=== PATIENT | female | born 1990 | race Caucasian/White ===

== ENCOUNTER 2017-01-25 12:02 | Emergency (ER) | payer BC, OTHER ==
[~2017-01-25] VITALS: Ht 152.4 cm; Wt 66.9 kg
[2017-01-25 12:14] VITALS: BP 119/84; PULSE 103; TEMP 37; O2SAT 97; Ht 152.4 cm; Wt 66.9 kg
[2017-01-25] MEDS ORDERED: ELMCR TOP (13:06)
--- NOTE | 2017-01-25 13:08 | EMERGENCY ROOM VISIT NOTE ---
History First contact with patient: 12:21 Chief Complaint: RASH Stated Complaint: EXPOSED TO SCABIES, RASH-WORK RELATED INJURY History of Present Illness The patient is a 26 year old female who presents to the Emergency Room via private vehicle with complaints of "exposed to scabies, rashwork with injury". The patient states that at her occupation, she believes she may been exposed to scabies. She states that after being in a certain home while at work, she notes that she began itching, and was treated with permethrin. She treated herself 2. She states that she may been reexposed, and notes that now her dog , and her significant other also developed similar symptoms. She states that one person at her work, has the exact same rash, and bite cr that she has. She has not been able to see the small whites, but does note that the bumps over her body, with streaking. There is been no fever or chills. Review of Systems A complete 10-point Review of Systems was discussed with the patient, with pertinent positives and negatives listed in the History of Present Illness. All remaining Review of Systems questions can be considered negative unless otherwise specified. Past Medical/Surgical History No pertinent past medical history. Family History Cancer. Social History Smoking Status: Current Every Day Smoker Patient is employed, and lives locally. Current/Historical Medications Scheduled Permethrin 5% (Elimite 5%), 30 GM TOP DIRECTED Miscellaneous Medications None (Patient States No Home Meds) Physical Exam Vital Signs Date Time Temp Pulse Resp B/P (MAP) Pulse Ox O2 Delivery O2 Flow Rate FiO2 01/25/17 12:14 37.0 103 20 119/84 97 Room Air Physical Exam VITAL SIGNS - Vital signs and nursing notes were reviewed. Stable. GENERAL -26-year-old female appearing her stated age who is in no acute distress. Communicates well with provider and answers questions appropriately. SKIN - there are small punctate, erythematous slightly raised regions overlying her arm, and shoulder region. There are also some of the left leg. There is tracking/burrowing from these regions. HEAD - NC/AT. Medical Decision & Procedures Medical Decision Patient was seen and evaluated as above. She presents to us today with small erythematous punctate regions, which are consistent with either scabies or fleas. Because of my has not been able to be visualized, I will treat for scabies, secondary to the [place]. It certainly is concerning history. She' ll be permethrin cream, however she is not to start this until the . The th of this month will be 14 days from her last dosing. She is also encouraged to use conservative measures at home which were outlined in her discharge instructions. She appears stable for outpatient management. She was educated upon worrisome symptoms which to return, had questions prior to discharge, and was discharged home in condition. Regarding her tetanus, she states that she received all of her childhood immunizations. 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 In the evaluation and treatment of this patient following differential diagnoses were entertained: Scabies, flea bites, among others. Impression Primary Impression: Scabies Departure Information Dispostion Home / Self-Care Condition GOOD Prescriptions Permethrin 5% (Elimite 5%) 180 Appln/60 Gm Cr 30 GM TOP DIRECTED for 1 Day, #1 TUBE Thoroughly massage and leave on for 8 to 14 hours before removing; may repeat 14 days after first treatment. Prov: Beni Suarez PA-C 01/25/17 Referrals No Doctor, Assigned (PCP) Louis Cherry M.D. Patient Instructions My [facility] Additional Instructions You were seen in the emergency Department for a rash. At this time this is most like a scabies, or flea bites. Because of the concern for scabies, I will recommend permethrin cream. Because you have already done 2 doses, please do not repeat the new prescription that I sent here pharmacy until 14 days after your last dose. You may repeat this on February 06. I also recommend following up with the family doctor. Thoroughly massage cream (30 g for average adult) from head to soles of feet; leave on for 8 to 14 hours before removing (shower or bath); for infants and the elderly, also apply on the hairline, neck, scalp, worship, and forehead; may repeat if living mites are observed 14 days after first treatment; one application is generally curative. When you start treatment, wash all the clothes you and others in your home wore in the last 4 to 5 days in hot water. Then dry them in a dryer on high heat. You should also wash any bedclothes (sheets and blankets) or towels people in your home have touched. If your child is getting treated, wash his or her stuffed animals, too. Dry-cleaning will also get rid of the scabies mite. Any bedding, clothing, or towels that you cannot wash or dry-clean should be placed in a sealed plastic bag for at least 3 days. Scabies mites usually without contact with human skin after a few days. I have also listed number for dermatology. Please check with your workman's comp to see if this is an improved individual. This is so that continued care if needed may be had. Please follow-up with your work comp person. Please also wear high white socks, and look for small little jumping mites as this may indicate fleas. I recommended taking the dog to the vet. Please return to emergency department with any new/concerning symptoms. Questions or concerns please call [phone]. This will directly go to the emergency department.
== END 2017-01-25 13:35 | disposition home or self-care (01) ==
LOC: C.EDB 12:04 → C.EDD 13:35
DX: B86 Scabies (principal); F17.200 Nicotine dependence, unspecified, uncomplicated

== ENCOUNTER 2018-01-14 16:39 | Outpatient (CLI) | payer OTHER ==
[~2018-01-14] VITALS: Ht 152.4 cm; Wt 71.9 kg
[~2018-01-14 16:39] MED LIST: ELMCR TOP
[2018-01-14] MEDS ORDERED: PEDI1CHW82 (18:21)
[2018-01-14] MEDS ORDERED: NVLNI SC (18:21)
[2018-01-14] MEDS ORDERED: FERR1TAB23 (18:21)
[2018-01-14] MEDS ORDERED: ESOM20CA PO (18:21)
[2018-01-14 18:23] VITALS: Ht 152.4 cm; Wt 71.9 kg
== END 2018-01-14 17:45 | disposition home or self-care (01) ==
LOC: C.OPB 16:39 → C.OBG 16:39 → C.OPB 17:45
PROVIDERS: ATTEND Obstetrics & Gynecology
DX: O24.419 Gestational diabetes mellitus in pregnancy, unspecified control (principal); O99.89 Other specified diseases and conditions complicating pregnancy, childbirth and the puerperium; R03.0 Elevated blood-pressure reading, without diagnosis of hypertension; Z3A.00 Weeks of gestation of pregnancy not specified

== ENCOUNTER 2018-01-17 09:34 | Inpatient (IN) | payer OTHER ==
[~2018-01-17] VITALS: Ht 152.4 cm; Wt 71.7 kg
[~2018-01-17 09:34] MED LIST changes: -ELMCR TOP; +ESOM20CA PO; +FERR1TAB23; +NVLNI SC; +PEDI1CHW82
[2018-01-17 10:08] VITALS: Ht 152.4 cm; Wt 71.7 kg
[2018-01-17] MEDS ORDERED: SODIUM CHLORIDE 0.9% 1000ML 1,000 ML IV SCH (10:25)
[2018-01-17] MEDS ORDERED: LACTATED RINGER'S 1000ML 1,000 ML IV PRN (10:25)
[2018-01-17] MEDS ORDERED: DEXTROSE 5% 1000ML 1,000 ML IV SCH (10:25)
[2018-01-17] MEDS ORDERED: LACTATED RINGER'S 1000ML 500 ML IV PRN ×2 (10:28→14:33)
[2018-01-17] MEDS ORDERED: PHARMACY GLYCEMIC MGMT CONSULT PRN (10:30)
[2018-01-17] MEDS ORDERED: DEXTROSE 50% 50 ML SYR IV PRN (10:30)
[2018-01-17] MEDS ORDERED: ONDANSETRON INJ 2 MG/ML 2 ML VIAL IV PRN ×2 (10:30→14:45)
[2018-01-17] MEDS ORDERED: OXYTOCIN 30 UNITS/500ML NSS IV PRN ×2 (10:30→20:00)
[2018-01-17 10:48] LABS: HEMATOCRIT 36.6 % (37-47); HEMOGLOBIN 12.5 g/dL (12.0-16.0); MEAN CELL VOLUME 89.5 fL (80-100); MEAN CORPUSCULAR HEMOGLOBIN 30.6 pg (25-34); MEAN CORPUSCULAR HGB CONC 34.2 g/dl (32-36); MEAN PLATELET VOLUME 11.6 fL (7.4-10.4); PLATELET COUNT 197 K/uL (130-400); RED CELL DISTRIBUTION WIDTH CV 13.9 % (11.5-14.5); RED CELL DISTRIBUTION WIDTH SD 45.8 fL (36.4-46.3); WHITE BLOOD COUNT 13.34 K/uL (4.8-10.8)
[2018-01-17 11:25] LABS: ALBUMIN 2.7 gm/dl (3.4-5.0); CALCIUM 8.6 mg/dl (8.5-10.1); CREATININE 0.78 mg/dl (0.60-1.20); POTASSIUM 3.8 mmol/L (3.5-5.1); TOTAL PROTEIN 6.8 gm/dl (6.4-8.2)
[2018-01-17] MEDS ORDERED: INSULIN REGULAR 250 UNITS in SODIUM CHLORIDE 0.9% 250ML 250 ML IV SCH (13:00)
--- NOTE | 2018-01-17 13:33 | Pharmacy Progress Note ---
Glycemic: Assessment & Plan Date of Service Jan 17, 2018. Assessment & Plan ASSESSMENT: * Ms Sherman is a 27yo female with gestational diabetes, which she has been managing with NPH 26 units SQ qHS. * BSGs in the 80s on admission. PLAN: * Gestational DM protocol initiated by provider on admission. * This appears to be appropriate. * Pharmacy will follow in case patient requires additional intervention. * Please note that the plan above was derived based on current level of insulin resistance and hospital stress. These recommendations are appropriate for inpatient admission only. Plan of care upon discharge will need to be reassessed to avoid potential outpatient hypo/hyperglycemia.
[2018-01-17] MEDS: LACTATED RINGER'S 1000ML 1,000 ML IV SCH ×3 (13:39→18:35)
[2018-01-17] MEDS ORDERED: BUPIVACAINE 0.25% 30 ML VIAL ONE (13:52)
[2018-01-17] MEDS ORDERED: EpHEDrine SULFATE INJ 50 MG/ML AMP ONE (13:52)
[2018-01-17] MEDS ORDERED: FENTANYL CITRATE INJ 50 MCG/1 ML 2 ML VIAL ONE (13:53)
[2018-01-17] MEDS ORDERED: FENTANYL 2MCG/ML ROPIV 1.25MG/ML 100ML BAG ONE (13:53)
[2018-01-17] MEDS ORDERED: NALOXONE HCL INJ 1 MG in SODIUM CHLORIDE 0.9% 1000ML 1,000 ML IV PRN (14:33)
[2018-01-17] MEDS ORDERED: EpHEDrine SULFATE INJ 50 MG/ML AMP IV PRN (14:45)
[2018-01-17] MEDS ORDERED: NALOXONE HCL INJ 0.4 MG/1 ML VIAL/CARP IV PRN (14:45)
[2018-01-17] MEDS ORDERED: DiphenhydrAMINE HCL 50 MG/ML VIAL IV PRN (14:45)
[2018-01-17] MEDS ORDERED: NALBUPHINE HCL INJ 10 MG/ML 1ML AMP IV PRN (14:45)
[2018-01-17] MEDS ORDERED: FENTANYL 2MCG/ML ROPIV 1.25MG/ML 100ML BAG EPI PRN (14:45)
[2018-01-17] MEDS ORDERED: ACETAMINOPHEN 325 MG TAB PO STA (15:13)
[2018-01-17] MEDS ORDERED: LACTATED RINGER'S 1000ML 1,000 ML IV SCH (19:48)
[2018-01-17] MEDS: DOCUSATE SODIUM 100 MG CAP PO SCH (20:00)
[2018-01-17] MEDS ORDERED: MEASLES, MUMPS & RUBELLA VIRUS VIAL SQ. ONE (20:00)
[2018-01-17] MEDS ORDERED: ACETAMINOPHEN 325 MG TAB PO PRN (20:00)
[2018-01-17] MEDS ORDERED: HYDROCORTISONE ACETATE 25 MG SUPP PR PRN (20:00)
[2018-01-17] MEDS ORDERED: BENZOCAINE 20% AER SPR 82.5 GM CAN EXT PRN (20:00)
[2018-01-17] MEDS ORDERED: DIPHTHERIA/TETANUS/PERTUSSIS 0.5 ML SYR/VIAL IM. ONE (20:00)
[2018-01-17] MEDS ORDERED: LANOLIN OINT EXT PRN (20:00)
[2018-01-17] MEDS ORDERED: SUPERCREAM 0.870 % 15GM JAR EXT PRN (20:00)
--- NOTE | 2018-01-17 20:19 | DELIVERY SUMMARY ---
DATE OF OPERATION: 01/17/2018 TIME OF DELIVERY OF BABY: 1911 p.m. TIME OF DELIVERY OF PLACENTA: 19:20 p.m. DETAILS OF DELIVERY: Patient was found to be fully dilated and desired to push. She pushed for about one and half an hour and the head was over the perineum, which had tight hymenal ring and muscles. Mother was exhausted and the heart rate was having decelerations to 80s-90s. Then a right mediolateral episiotomy was opened. Head was delivered without difficulty. Shoulders were delivered with minimal traction. There was a nuchal cord x1, which was reduced. Baby was handed off to the mother, where mouth and nose were suctioned. Cord was clamped x2 and cut. It was 3-vessel cord. Cord blood was obtained. Vagina and perineum were checked for lacerations. There was only episiotomy, which was opened earlier. It was checked to be second degree with rectal exam. Excellent sphincter tone was noted. Gloves were changed. This episiotomy line was repaired with 2-0 Vicryl in a running lock fashion bringing the vagina mucosa together. Perineal body muscle and bulbocavernosus muscle together and skin in a subcuticular fashion. Then the placenta was found to be in the vagina and delivered spontaneously as intact and complete. Uterus was explored and was found to be empty. Lower segment was cleared off all clots and debris. EBL was 300 ml. Fundus was firm. Mom and baby tolerated the procedure well. Sponge, lap, and needle counts were correct x2. Baby was a viable female infant. Apgars 9/10, weight was 3229 gr. No complications happened and I was present during whole procedure. I attest to the content of the Intraoperative Record and any orders documented therein. Any exceptions are noted below. MTDD
[2018-01-17 21:30] VITALS: BP 128/80; PULSE 83; TEMP 37; O2SAT 97
--- NOTE | 2018-01-17 22:41 | Anesthesia Procedure Note ---
Anesthesia Epidural Removal Nt Date & Time Jan 17, 2018 at 22:41 Vital Signs Pain Intensity: 4.0 Vital Signs Past 12 Hours Date Time Temp Pulse Resp B/P (MAP) Pulse Ox O2 Delivery O2 Flow Rate FiO2 01/17/18 21:30 Room Air 01/17/18 21:30 37.0 83 16 128/80 (96) 97 Room Air Notes Mental Status: alert / awake / arousable, participated in evaluation Nausea / Vomiting: adequately controlled Pain: adequately controlled Airway Patency, RR, SpO2: stable & adequate BP & HR: stable & adequate Hydration State: stable & adequate Neuraxial Anesthesia: was administered, sensory block is resolving Anesthetic Complications: no major complications apparent, pt satisfied with anesthetic care Epidural: removed without complications, with tip intact
[2018-01-17] MEDS: IBUPROFEN 600 MG TAB PO PRN (23:37)
[2018-01-18] VITALS (7 sets, daily range): BP systolic 115–132; BP diastolic 71–80; PULSE 76–100; TEMP 36.6–37.1; O2SAT 96–98
[2018-01-18] MEDS: IBUPROFEN 600 MG TAB PO PRN ×5 (03:41→23:41)
[2018-01-18 07:22] LABS: HEMATOCRIT 28.1 % (37-47); HEMOGLOBIN 9.5 g/dL (12.0-16.0)
[2018-01-18] MEDS: PRENATAL VITAMIN TAB PO SCH (08:36)
[2018-01-18] MEDS: FERROUS SULFATE 325 MG TAB PO SCH (08:37)
[2018-01-18] MEDS: DOCUSATE SODIUM 100 MG CAP PO SCH ×2 (08:37→19:30)
[2018-01-18] MEDS: OXYCODONE/ACETAMINOPHEN 5-325 TAB PO PRN ×4 (08:39→23:41)
--- NOTE | 2018-01-18 12:35 | Progress Note ---
Subjective Jan 18, 2018. Subjective Passing Gas: Yes Diet Tolerance: Regular Diet Lochia: Small Feeding Type: Breast Feeding Review of Systems Constitutional: No fever, No chills, No sweats, No weight loss, No weakness, No fatigue, No problem reported Respiratory: No cough, No sputum, No wheezing, No shortness of breath, No dyspnea on exertion, No dyspnea at rest, No hemoptysis, No problem reported Cardiac: No chest pain, No orthopnea, No PND, No edema, No claudication, No palpitations, No problem reported Breast: No see HPI, No breast lump, No change in shape, No nipple discharge, No breast pain, No problem reported Abdomen: No pain, No nausea, No vomiting, No diarrhea, No constipation, No GI bleeding, No problem reported Female : No see HPI, No dysuria, No urinary frequency, No hematuria, No incontinence, No abnormal vaginal bleeding, No vaginal discharge, No problem reported Objective Vital Signs Date Time Temp Pulse Resp B/P (MAP) Pulse Ox O2 Delivery O2 Flow Rate FiO2 01/18/18 11:50 36.6 89 16 129/78 (95) 97 Room Air 01/18/18 07:40 Room Air 01/18/18 07:30 36.7 91 16 119/71 (87) 98 Room Air 01/18/18 04:20 36.8 79 16 115/75 (88) 96 Room Air 01/18/18 00:15 97 Room Air 01/18/18 00:15 37.1 86 18 132/73 (92) 97 Room Air 01/17/18 21:30 Room Air 01/17/18 21:30 37.0 83 16 128/80 (96) 97 Room Air Physical Exam General Appearance: WELL-APPEARING Fundus: Firm Laboratory Results Last 24 Hours Test 01/17/18 12:35 01/17/18 13:36 01/17/18 14:34 01/17/18 15:37 Bedside Glucose 82 mg/dl 78 mg/dl 94 mg/dl 97 mg/dl Test 01/17/18 16:37 01/17/18 17:36 01/17/18 18:32 01/18/18 06:33 Bedside Glucose 93 mg/dl 93 mg/dl 91 mg/dl Hemoglobin 9.5 g/dL Hematocrit 28.1 % Assessment and Plan Problem List Medical Problems: (1) Scabies Status: Acute Day#: 1
[2018-01-18] MEDS ORDERED: BISACODYL 5 MG TABEC PO SCH (20:00)
[2018-01-19] MEDS: IBUPROFEN 600 MG TAB PO PRN ×2 (03:34→08:49)
[2018-01-19] MEDS: OXYCODONE/ACETAMINOPHEN 5-325 TAB PO PRN (03:34)
[2018-01-19 06:48] LABS: HEMATOCRIT 26.4 % (37-47); HEMOGLOBIN 9.1 g/dL (12.0-16.0); MEAN CELL VOLUME 91.3 fL (80-100); MEAN CORPUSCULAR HEMOGLOBIN 31.5 pg (25-34); MEAN CORPUSCULAR HGB CONC 34.5 g/dl (32-36); MEAN PLATELET VOLUME 10.6 fL (7.4-10.4); PLATELET COUNT 185 K/uL (130-400); RED CELL DISTRIBUTION WIDTH CV 14.5 % (11.5-14.5); RED CELL DISTRIBUTION WIDTH SD 48.2 fL (36.4-46.3); WHITE BLOOD COUNT 11.52 K/uL (4.8-10.8)
[2018-01-19] MEDS ORDERED: BISACODYL 10 MG SUPP PR PRN (07:00)
[2018-01-19 08:00] VITALS: BP 123/78; PULSE 89; TEMP 36.7; O2SAT 98
[2018-01-19] MEDS: DOCUSATE SODIUM 100 MG CAP PO SCH (08:48)
[2018-01-19] MEDS: PRENATAL VITAMIN TAB PO SCH (08:48)
[2018-01-19] MEDS: FERROUS SULFATE 325 MG TAB PO SCH (08:48)
--- NOTE | 2018-01-19 09:06 | OB/GYN Progress Note ---
[facility] Progress Note Date of Service Jan 19, 2018. Subjective conversation w/ patient, physical exam Ambulation: ambulating normally Voiding: no incontinence Passing Gas: Yes Diet Tolerance: Regular Diet Lochia: Small Feeding Type: Breast Feeding Objective Vital Signs Date Time Temp Pulse Resp B/P (MAP) Pulse Ox O2 Delivery O2 Flow Rate FiO2 01/19/18 08:00 36.7 89 18 123/78 (93) 98 Room Air 01/18/18 23:30 36.7 76 16 120/79 (93) 96 Room Air 01/18/18 23:30 96 Room Air 01/18/18 19:32 36.6 100 18 122/80 (94) 98 Room Air 01/18/18 15:14 36.6 76 18 116/76 (89) 97 Room Air 01/18/18 15:14 97 Room Air 01/18/18 11:50 36.6 89 16 129/78 (95) 97 Room Air Physical Exam General Appearance: WELL-APPEARING, NO APPARENT DISTRESS Abdomen: non tender, soft Fundus: Firm Extremities: non-tender, normal inspection, no pedal edema, no calf tenderness Laboratory Results Last 24 Hours Test 01/19/18 06:39 White Blood Count 11.52 K/uL Red Blood Count 2.89 M/uL Hemoglobin 9.1 g/dL Hematocrit 26.4 % Mean Corpuscular Volume 91.3 fL Mean Corpuscular Hemoglobin 31.5 pg Mean Corpuscular Hemoglobin Concent 34.5 g/dl RDW Standard Deviation 48.2 fL RDW Coefficient of Variation 14.5 % Platelet Count 185 K/uL Mean Platelet Volume 10.6 fL Assessment and Plan Post- Day Number: 2 Continue Routine Care: discharged
[2018-01-19] MEDS ORDERED: MISC-1040 (09:08)
[2018-01-19] MEDS ORDERED: MTR600X PO (09:08)
--- NOTE | 2018-01-19 09:10 | Discharge Instructions ---
Discharge Instructions Date of Service Jan 19, 2018. Admission Reason for Admission: Leakage,Amniotic Fluid Discharge Discharge Diagnosis / Problem: term delivered Discharge Goals Goal(s): Routine recovery after delivery Activity Recommendations Activity Limitations: as noted below Lifting Limitations: no more than 10 pounds Exercise/Sports Limitations: gradually increase as tolerated May Resume Sexual Activity: after follow-up appointment Shower/Bathe: no limitations Driving or Machine Use: resume 3 days after discharge . Instructions / Follow-Up Instructions / Follow-Up ACTIVITY RECOMMENDATIONS: * Gradual return to full activity over the next 2-3 weeks. * No lifting - nothing heavier than baby over the next 2-3 weeks. * Do not engage in vigorous exercise, sexual activity or sports until cleared by your physician. * Do not drive or operate any motorized equipment until cleared by your physician. * You may shower/bathe daily. BREAST CARE: If you are not breast feeding: * Wear a supportive bra 24 hours a day for one to two weeks. * Avoid stimulating your breasts and nipples as much as possible during the first few weeks after delivery. * When taking a shower, have the warm water hit your back, not breasts. * When your breasts feel full, apply ice packs. Usually three to four times a day helps ease the discomfort. * Take a mild pain medication (Tylenol/Motrin) when you are uncomfortable. If breast feeding: * Use breast milk to lubricate nipples. Lansinoh cream may be used for sore nipples. You do not need to remove cream prior to breast feeding. If using a different brand of cream, check the label for directions regarding removal of cream prior to nursing. * Wear a supportive bra. * If having problems with breasts or breast feeding, call a customer consultant or your health care provider. EPISIOTOMY CARE: After delivery, if you have an episiotomy (stitches), the following steps will ease discomfort and aid healing. * For the first 24 hours after delivery, place ice packs next to your episiotomy to help reduce swelling. * After the first 24 hour-period, sitz baths, either portable or in the tub, are suggested. A shower with a shower arm sprayed over the episiotomy may be comforting. * Maria D care should be done after each voiding and bowel movement. Squirt warm water from a plastic bottle over the perineum (region of the body between the anus and urinary opening) and pat dry. * Use Dermoplast to ease discomfort. Shake container. [place] directly over the episiotomy. * Place a Tucks on a clean sanitary pad next to your episiotomy. OVER THE COUNTER MEDICATION: * For discomfort or pain, you may use Acetaminophen (Tylenol), Ibuprofen (Advil ), or Naproxen (Aleve) following the package directions. * For constipation you may use Colace following the package directions. SPECIAL CARE INSTRUCTIONS: When you are discharged from the hospital, it is important for you to follow the instructions listed below: * During the first week at home, you should be able to care for yourself and your baby. In addition, the usual light household activities are encouraged. * Limit your activities to the way you feel. Do not try to clean the house or move furniture. Be sensible. * If you actively engage in sports and have done so up until the time of your delivery, you may resume these activities as soon as you feel able. This may take up to one month or even longer. Use good judgment. * Continue to take your vitamins for at least six weeks after the of your baby. * Your diet need not be limited unless you were on a special diet before your delivery. Breast-feeding mothers need around 2500 calories per day and at least 64-80 ounces of fluid per day (8 to 10 glasses). * You should eat foods from the four major food groups. Crash diets or fad diets are to be avoided. Eating lean meats, fresh fruits and vegetables, low-fat dairy products, high fiber foods and a regular exercise program, will help you get back to your pre- weight without putting your health at risk. * Constipation is sometimes a problem after delivery. Take a mild laxative as needed. If breast feeding, Milk of Magnesia is acceptable to use. You may use a suppository or Fleets enema if no episiotomy. * A daily shower or tub bath is suggested. Be sure to thoroughly and gently dry the perineum. * A bloody vaginal discharge will usually continue until around four weeks post . A small amount of bleeding may continue for as long as six weeks. Vaginal discharge changes from the bright red bleeding after delivery to pink then brownish and finally yellowish-pink before becoming white and disappearing. * Bleeding may increase with activity. Your first period may come in 4-8 weeks. If you are breast feeding, your period may be delayed even longer. * [place] (sex) can begin whenever both you and your partner feel comfortable and do not have any form of genital infection. It is recommended that you wait until after your return appointment and discuss with your physician. If you have questions, please talk to your health care practitioner. A condom should be used to prevent infection and . * Foreplay, gentle intercourse and lubrication is very important the first several times to prevent pain. A water-based lubricant such as K-Y jelly or Astroglide may be used. * Tampons may be used six weeks after delivery. * Douching should be avoided for 6 weeks after delivery. * If you have RH negative blood and your baby is RH positive, you will receive RHOGAM by injection prior to discharge. The nurse will give you a card to keep with you that has the date and place that you received RHOGAM after delivery. * During your care, you had a Rubella screen done to check for the presence of rubella antibodies in your blood. If your test was negative, you will receive a Rubella vaccine prior to discharge. This vaccine may cause a fever, soreness at the injection site and flu-like symptoms. If these symptoms persist, notify your health care practitioner. is not advised for three months after a Rubella vaccine. There is a higher chance of having a baby with defects if conceived within three months of getting the vaccine. * If you were discharged 24 hours from delivery or before 48 hours: Visiting nurses will come to your home 48 hours after discharge to assess you and your baby. The visiting nurse will meet with you while you are in the hospital to arrange a time and get directions to your home. * Verbalizes understanding of car seat law as reviewed with patient nursing. * Car Seat hand-out given and reviewed with patient by nursing. * Shaken baby information reviewed with patient by nursing. Call you doctor if: * Heavy bleeding (saturating several pads an hour) or passing clots the size of your fist. * A fever >101 degrees F (38.3 degrees C) on two occasions four hours apart and/or chills. * Unusual pain in the pelvic or vaginal areas. * "Baby Blues" lasting longer than two weeks. If you have any questions or concerns, call your health care practitioner at . FOLLOW-UP VISIT: * Please call the office at to schedule a 6 week examination. It is important you keep this appointment. * It is important for you to make arrangements for either yearly or twice yearly check-ups thereafter. Current Hospital Diet Patient's current hospital diet: Regular OB Diet Discharge Diet Recommended Diet: Regular OB Diet Pending Studies Studies pending at discharge: no Medical Emergencies . Who to Call and When: Medical Emergencies: If at any time you feel your situation is an emergency, please call 911 immediately. . Non-Emergent Contact Non-Emergency issues call your: Primary Care Provider . . "Provider Documentation" section prepared by Jerson Harris. .
[2018-01-19 12:10] VITALS: BP_DIAS 78; PULSE 89; TEMP 36.7
== END 2018-01-19 12:10 | disposition home or self-care (01) | DRG 775 ==
LOC: C.OPB 09:34 → C.LD 09:34 → C.OPB 10:27 → C.LD 10:48 → C.OBG 21:34
PROVIDERS: ADMIT Obstetrics & Gynecology; ATTEND Obstetrics & Gynecology
PROC: 0W8NXZZ Division of Female Perineum, External Approach (ICD-10-PCS; principal; 2018-01-17)
PROC: 10E0XZZ Delivery of Products of Conception, External Approach (ICD-10-PCS; principal; 2018-01-17)
DX: O24.424 Gestational diabetes mellitus in childbirth, insulin controlled (principal); O75.81 Maternal exhaustion complicating labor and delivery; O76 Abnormality in fetal heart rate and rhythm complicating labor and delivery; O69.81X0 Labor and delivery complicated by cord around neck, without compression, not applicable or unspecified; O99.62 Diseases of the digestive system complicating childbirth; K21.9 Gastro-esophageal reflux disease without esophagitis; O99.02 Anemia complicating childbirth; D64.9 Anemia, unspecified; Z3A.39 39 weeks gestation of pregnancy; Z37.0 Single live birth; Z79.899 Other long term (current) drug therapy; Z87.891 Personal history of nicotine dependence

== ENCOUNTER 2021-05-29 20:25 | Inpatient (IN) ==
[2021-05-29] MEDS ORDERED: OXYTOCIN 30 UNITS/500 ML BAG IV PRN (23:46)
[2021-05-30] MEDS: LACTATED RINGER'S 1,000 ML IV PRN ×3 (00:01→04:38)
[2021-05-30 00:02] LABS: Hematocrit (blood only) 39.7 % (37-47); Hemoglobin 13.3 g/dL (12.0-16.0); Mean Corpuscular Hgb Conc 33.5 g/dL (32-36); Mean Corpuscular Volume 86.7 fL (80-100); Platelet Count 257 K/uL (130-400); RDW Coefficient of Variation 14.7 % (11.5-14.5); RDW Standard Deviation 46.2 fL (36.4-46.3); Red Blood Count 4.58 M/uL (4.2-5.4)
[2021-05-30] MEDS ORDERED: SODIUM CHLORIDE 0.9% INJ 10 ML VIAL ONE (00:07)
[2021-05-30] MEDS ORDERED: fentaNYL citrate 100 MCG/2 ML VIAL ONE (00:07)
[2021-05-30] MEDS ORDERED: BUPIVACAINE 0.25% 30 ML VIAL ONE (00:07)
[2021-05-30] MEDS ORDERED: ePHEDrine sulfate 50 MG/ML AMP ONE (00:07)
[2021-05-30] MEDS ORDERED: fentaNYL 2MCG/ML ROPIVACAINE 1.25MG/ML 100 ML BAG EPI ONE (00:08)
--- NOTE | 2021-05-30 00:20 | History & Physical Report ---
Date of Service May 30, 2021 Assessment & Plan (1) Diabetes mellitus affecting : Plan: Admit in labor Epidural planned epidural planned Admission and Anticipated Discharge Date Admission Date: n History of Present Illness Chief Complaint: onset of labor Primary Care Provider: MICHAEL PCP 30 F P1001 at term with onset of labor. with GDM controlled with insulin and blood sugars good. GBS is negative. Covid is negative. Allergies Allergy/AdvReac Type Severity Reaction Status Date / Time No Known Allergies Allergy Unverified 01/17/18 10:06 Home Medications Medication Instructions Recorded Confirmed Type ferrous sulfate 325 mg (65 mg 325 mg PO DAILY 05/29/21 05/29/21 History iron) tablet (iron) insulin glargine 100 unit/mL (3 32 unit SUBCUT HS 05/29/21 05/29/21 History mL) subcutaneous pen (Lantus Solostar U-100 Insulin) vit no.95-ferrous 1 tab PO DAILY 05/29/21 05/29/21 History fumarate 28 mg-folic acid 800 mcg tablet () Patient History Medical History (Updated 05/30/21 @ 00:39 by Francisco Cespedes MD) Diabetes mellitus affecting OB History x1 [employer] History neg Review of Systems as per Subjective / HPI Physical Exam Constitutional: WD/WN, vitals as above comfortable Respiratory: normal respiratory effort, lungs clear to auscultation Cardiovascular: RRR, no murmur, no edema Skin: no rashes, warm and dry Neurologic: patellar DTR's 2+ bilat, sensation intact Genitourinary: OB Exam Abdomen: + fundal height and + vertex OB Exam Monitor Tracing: + external FHT monitor used, + external uterine monitor used, + category I and + normal FHT variability Results & Data ([facility]) Vital Signs (Past 12 Hours) Vital Signs Temp Pulse Resp BP Pulse Ox 05/30/21 00:14 79 93 05/30/21 00:09 95 H 93 05/30/21 00:04 86 93 05/29/21 23:59 89 92 05/29/21 23:58 36.7 C 75 18 128/65 05/29/21 20:34 85 138/81 Laboratory Results Active Orders - 24 Hr 05/29/21 23:22 Outpatient bed [ADMIT] ORDER Activity [RC] NEEDED Monitoring [RC] protocol Ice Chips by Mouth [RC] .ONGOING Notify Provider w/ Parameters [RC] NEEDED Sterile Vaginal Exam [RC] PERUNIT Vital Signs Assessment [RC] PERUNIT Code Status Routine 05/29/21 23:23 AmniSure ROM Test (POC Only!) [POC] Urgent 05/29/21 23:46 Admit as Inpatient [ADMIT] ORDER Monitoring [RC] protocol IV insertion - peripheral [RC] ONCE LD Urine Dipstick [RC] PERUNIT Measure intake and output [RC] QSE O2 @ 10 L/min FHR deceleration [RC] as needed Straight Cath [RC] NEEDED Vital Signs Assessment [RC] PROTOCOL Consult Anesthesiology Stat NPO Lactated Ringer's [Lr] 1,000 ml IV 125 mls/hr Oxytocin [Pitocin] 30 units in 500 ml IV 20 units/hr 05/29/21 23:48 Provide COVID-19 Patient Instructions [RC] ONCE Diagnostic Findings 05/29/21 05/29/21 05/30/21 23:45 23:54 00:16 WBC 15.10 H RBC 4.58 Hgb 13.3 Hct 39.7 MCV 86.7 MCH 29.0 MCHC 33.5 RDW Std Deviation 46.2 RDW Coeff of Richa 14.7 H Plt Count 257 MPV 12.0 H POC Glucose 84 SARS-CoV-2, RNA, NAAT NEGATIVE Monitoring External Monitor Cat 1
[2021-05-30] MEDS ORDERED: diphenhydrAMINE 50 MG/ML VIAL IV PRN (00:33)
[2021-05-30] MEDS ORDERED: ONDANSETRON INJ 2 MG/ML 2 ML VIAL IV PRN (00:33)
[2021-05-30] MEDS ORDERED: fentaNYL 2MCG/ML ROPIVACAINE 1.25MG/ML 100 ML BAG EPI PRN (00:33)
[2021-05-30] MEDS ORDERED: NALBUPHINE HCL INJ 10 MG/ML AMP IV PRN (00:33)
[2021-05-30] MEDS ORDERED: ePHEDrine sulfate 50 MG/ML AMP IV PRN (00:33)
[2021-05-30] MEDS ORDERED: NALOXONE HCL 0.4 MG/1 ML VIAL/CARP IV PRN (00:33)
[2021-05-30] MEDS ORDERED: NALOXONE HCL 1 MG in SODIUM CHLORIDE 0.9% 1000ML 1,000 ML IV PRN (00:33)
--- NOTE | 2021-05-30 00:38 | Anesthesiology Consultation ---
Date of Service May 30, 2021 Assessment & Plan Chart Review Chart Review: Patient NOT seen in Pre Admission Testing and Acceptable Risk for Labor Epidural Consults Requested none ASA ASA3 Proposed Anesthesia Anesthesia Type: Labor Epidural and CSE Risk / Benefits Reviewed With: PT / POA / Parent / Guardian, Accepts Plan and Informed Consent Obtained History Height/Weight Weight: 74.843 kg Allergies Allergy/AdvReac Type Severity Reaction Status Date / Time No Known Allergies Allergy Unverified 01/17/18 10:06 Medications Home Medications Medication Instructions Recorded Confirmed Last Taken ferrous sulfate 325 mg (65 mg 325 mg PO DAILY 05/29/21 05/29/21 05/28/21 iron) tablet (iron) insulin glargine 100 unit/mL (3 32 unit SUBCUT HS 05/29/21 05/29/21 05/28/21 mL) subcutaneous pen (Lantus Solostar U-100 Insulin) vit no.95-ferrous 1 tab PO DAILY 05/29/21 05/29/21 05/29/21 fumarate 28 mg-folic acid 800 mcg tablet () Active Medications Generic Name Dose Route Start Last Admin Trade Name Freq PRN Reason Stop Dose Admin Lactated Ringer's 1,000 mls @ 125 mls/hr 05/29/21 23:46 05/30/21 00:01 Lr IV 05/31/21 23:45 999 mls/hr .Q8H PRN Administration L&D Protocol Protocol NPO Date Last Intake of Fluids: 05/30/21 Time Last Intake of Fluids: 00:10 Date Last Intake of Solids: 05/29/21 Time Last Intake of Solids: 18:30 Past Medical History Medical History (Updated 05/30/21 @ 00:39 by Francisco Cespedes MD) Diabetes mellitus affecting Exercise / Class Metabolic Activity II 4-5 Yardwork/Stairs/Walk up hill Past Anesthesia History No Hx of Anesthesia Complications and No Family Hx of Anesthesia Complications History of PONV No Hx of PONV and No Hx of Motion Sickness Review of Systems no chest pain or sob Physical Exam Vital Signs Last Vital Signs Temp 36.7 C 05/29/21 23:58 Pulse 84 05/30/21 00:33 Resp 18 05/29/21 23:58 BP 128/65 05/29/21 23:58 Pulse Ox 92 05/30/21 00:33 ENMT Mouth: no TMJ abnormality Thyromental Distance: > or= 3.5 Finger Breadths Mallampati Class: II Neck normal visual inspection Respiratory normal respiratory effort Auscultation: lungs clear to auscultation bilaterally Cardiovascular Rate/Rhythm: regular rate and regular rhythm Musculoskeletal Spine: normal cervical ROM Neurologic moves all extremities Psychiatric Orientation: alert and oriented x 3 Testing Laboratory Results 05/29/21 23:54 05/30/21 00:16 POC Glucose 84
[2021-05-30] MEDS ORDERED: OXYTOCIN 30 UNITS/500 ML BAG IV PRN ×2 (05:14→09:27)
--- NOTE | 2021-05-30 07:28 | Obstetrical Progress Note ---
Date of Service May 30, 2021 Assessment & Plan Admission and Anticipated Discharge Date Admission Date: May 29, 2021 Subjective Patient is seen and examined She is known to me from last Reviewed her records from office and confirmed with her has been complicated by GDMA2, insulin controlled DM Denies other medical problems, smoking/ alcohol/ D use/ STD, no h/o HSV Admitted for labor by Dr Harris, received epidural and comfortable now EFW on 05/15 was 53% ile VE; 5/ 70%/ -3, posterior, ballotable FHR categ I [place]: cyxs q 2-3 min Continue to monitor closely and Oxytocin Results & Data ([facility]) Vital Signs (Past 12 Hours) Vital Signs Temp Pulse Resp BP Pulse Ox 05/30/21 07:23 102 H 96 05/30/21 07:18 102 H 96 05/30/21 07:13 99 H 96 05/30/21 07:12 97 H 120/82 05/30/21 07:08 105 H 96 05/30/21 07:03 100 H 96 05/30/21 06:58 83 104/59 L 94 05/30/21 06:53 83 94 05/30/21 06:48 82 94 05/30/21 06:43 81 103/59 L 95 05/30/21 06:38 103 H 96 05/30/21 06:33 104 H 95 05/30/21 06:28 96 H 112/64 95 05/30/21 06:23 96 H 95 05/30/21 06:18 99 H 95 05/30/21 06:14 84 109/63 05/30/21 06:13 88 95 05/30/21 06:08 92 H 96 05/30/21 06:03 111 H 96 05/30/21 05:58 95 H 123/75 95 05/30/21 05:53 104 H 95 05/30/21 05:48 88 95 05/30/21 05:43 105 H 96 05/30/21 05:42 94 H 117/71 05/30/21 05:38 108 H 96 05/30/21 05:33 113 H 96 05/30/21 05:28 100 H 96 05/30/21 05:27 107 H 119/72 05/30/21 05:23 96 H 96 05/30/21 05:18 98 H 96 05/30/21 05:13 102 H 118/71 97 05/30/21 05:08 94 H 97 05/30/21 05:03 96 H 97 05/30/21 04:58 92 H 113/66 96 05/30/21 04:53 107 H 97 05/30/21 04:48 125 H 98 05/30/21 04:44 96 H 117/74 05/30/21 04:43 102 H 97 05/30/21 04:38 111 H 98 05/30/21 04:35 36.9 C 05/30/21 04:33 97 H 99 05/30/21 04:28 107 H 98 05/30/21 04:23 87 95 05/30/21 04:18 81 95 05/30/21 04:13 88 95 05/30/21 04:12 74 87/49 L 05/30/21 04:08 116 H 96 05/30/21 04:03 83 96 05/30/21 03:58 87 96 05/30/21 03:57 80 101/59 L 05/30/21 03:53 91 H 95 05/30/21 03:48 87 95 05/30/21 03:43 85 94/55 L 96 05/30/21 03:38 84 95 05/30/21 03:33 84 96 05/30/21 03:29 89 96/53 L 05/30/21 03:28 92 H 96 05/30/21 03:23 95 H 96 05/30/21 03:18 104 H 96 05/30/21 03:13 100 H 97 05/30/21 03:12 100 H 103/57 L 05/30/21 03:08 88 97 05/30/21 03:03 117 H 97 05/30/21 02:58 126 H 97 05/30/21 02:57 95 H 111/61 05/30/21 02:53 102 H 95 05/30/21 02:48 98 H 96 05/30/21 02:43 83 95 05/30/21 02:42 105 H 106/61 05/30/21 02:38 90 96 05/30/21 02:33 83 95 05/30/21 02:28 94 H 105/58 L 95 05/30/21 02:23 100 H 95 05/30/21 02:18 99 H 95 05/30/21 02:14 89 105/58 L 05/30/21 02:13 90 96 05/30/21 02:08 104 H 95 05/30/21 02:03 91 H 96 05/30/21 01:58 108 H 96 05/30/21 01:57 93 H 105/56 L 05/30/21 01:53 111 H 96 05/30/21 01:48 111 H 97 05/30/21 01:44 77 115/57 L 05/30/21 01:43 82 96 05/30/21 01:38 103 H 97 05/30/21 01:33 121 H 96 05/30/21 01:28 131 H 96 05/30/21 01:26 123 H 124/58 L 05/30/21 01:23 81 95 05/30/21 01:21 97 H 114/59 L 05/30/21 01:18 103 H 96 05/30/21 01:16 111 H 124/71 05/30/21 01:13 101 H 96 05/30/21 01:11 92 H 124/67 05/30/21 01:08 112 H 97 05/30/21 01:06 102 H 116/64 05/30/21 01:03 103 H 98 05/30/21 01:02 83 117/57 L 05/30/21 01:00 71 90/53 L 05/30/21 00:59 71 66/30 L 05/30/21 00:58 83 99 05/30/21 00:57 107 H 111/63 05/30/21 00:55 96 H 127/75 05/30/21 00:53 99 H 92 05/30/21 00:52 98 H 122/87 05/30/21 00:48 100 H 89 L 05/30/21 00:43 107 H 91 05/30/21 00:39 106 H 88 L 05/30/21 00:38 98 H 92 05/30/21 00:33 84 92 05/30/21 00:28 87 92 05/30/21 00:23 89 93 05/30/21 00:14 79 93 05/30/21 00:09 95 H 93 05/30/21 00:04 86 93 05/29/21 23:59 89 92 05/29/21 23:58 36.7 C 75 18 128/65 05/29/21 20:34 85 138/81
[2021-05-30] MEDS ORDERED: LIDOCAINE 1% LOCAL 20 ML VIAL ONE (09:03)
[2021-05-30] MEDS ORDERED: SUPERCREAM 0.870% 15 GM JAR EXT PRN (09:27)
[2021-05-30] MEDS ORDERED: HYDROCORTISONE ACETATE 25 MG SUPP PR PRN (09:27)
[2021-05-30] MEDS ORDERED: DIPHTHERIA/TETANUS/PERTUSSIS 0.5 ML SYR/VIAL IM ONE (09:27)
[2021-05-30] MEDS ORDERED: BENZOCAINE 20% AER SPR 82.5 GM CAN EXT PRN (09:27)
[2021-05-30] MEDS ORDERED: ACETAMINOPHEN 325 MG TAB PO PRN (09:27)
[2021-05-30] MEDS ORDERED: bisacodyL 10 MG SUPP PR PRN (09:27)
--- NOTE | 2021-05-30 09:38 | Delivery Summary ---
Vaginal Delivery Summary Date of Service May 30, 2021 Vaginal Delivery Summary Patient was found to be fully dilated and had urge to push. She pushed through 3-4 contractions and delivered the head without difficulty. There was a nuchal cord around the neck which was tight and then noted to have another cord wrapped around left armpit, delivered the shoulders with minimal traction and then these the cord around the infant. The cord was clamped x2 and cut and baby was handed off to the waiting nursing team. Baby boy started moving and crying at 1 minute and Apgars were 8/9. Cord blood was obtained and then vagina and perineum were checked for lacerations. There was a left periurethral first-degree laceration and there was another first-degree in the perineal area. The bladder was emptied with a straight cath and 200 mL of urine was obtained. And the left periurethral laceration was repaired with 3-0 Vicryl on SH needle in a continuous fashion. And then perineal laceration was repaired with 2-0 Vicryl in a running fashion. Excellent hemostasis was achieved. The placenta was found to be in the vagina and delivered spontaneously as intact and complete. Lower segment was cleared of all clots and debris's and fundus was firm. IV oxytocin was started. The mom and baby tolerated procedure well. Sponge needle and instrument count was correct x2. No complications happened. And I was present during whole procedure.
[2021-05-30] MEDS: IBUPROFEN 600 MG TAB PO PRN ×2 (10:56→15:46)
--- NOTE | 2021-05-30 11:11 | Anesthesia Procedure Note ---
Date of Service May 30, 2021 Anesthesia Post Epidural Note Vital Signs Vital Signs: Temp Pulse Resp BP Pulse Ox 36.9 C 94 H 20 110/57 L 99 05/30/21 07:12 05/30/21 10:57 05/30/21 10:57 05/30/21 10:57 05/30/21 09:03 Notes Mental Status: alert / awake / arousable and participated in evaluation Patient Amnestic to Procedure: Yes Nausea / Vomiting: adequately controlled Pain: adequately controlled Airway Patency, RR, SpO2: stable & adequate BP & HR: stable & adequate Hydration State: stable & adequate Anesthetic Complications: no major complications apparent and Pt Satisfied with anesthetic care
[2021-05-30] MEDS ORDERED: CALCIUM CARBONATE 500 MG CHEWABLE TAB PO PRN (20:13)
[2021-05-30] MEDS: DOCUSATE SODIUM 100 MG CAP PO SCH (20:46)
[2021-05-30] MEDS ORDERED: FAMOTIDINE 20 MG TAB PO SCH (21:00)
[2021-05-30] MEDS: oxyCODONE/ACETAMINOPHEN 5mg/325mg TAB PO PRN (22:28)
[2021-05-31] MEDS: IBUPROFEN 600 MG TAB PO PRN ×4 (00:25→12:37)
[2021-05-31] MEDS: oxyCODONE/ACETAMINOPHEN 5mg/325mg TAB PO PRN (04:26)
[2021-05-31 06:57] LABS: Hematocrit (blood only) 34.6 % (37-47); Hemoglobin 11.2 g/dL (12.0-16.0); Mean Corpuscular Hemoglobin 28.9 pg (25-34); Mean Corpuscular Hgb Conc 32.4 g/dL (32-36); Mean Corpuscular Volume 89.2 fL (80-100); Mean Platelet Volume 11.5 fL (7.4-10.4); Platelet Count 224 K/uL (130-400); RDW Coefficient of Variation 15.3 % (11.5-14.5); RDW Standard Deviation 49.3 fL (36.4-46.3); Red Blood Count 3.88 M/uL (4.2-5.4); White Blood Count 11.84 K/uL (4.8-10.8)
[2021-05-31] MEDS ORDERED: PRENATAL VITAMIN 1 TAB PO SCH (08:00)
[2021-05-31] MEDS ORDERED: FERROUS SULFATE 325 MG TAB PO SCH (08:00)
--- NOTE | 2021-05-31 08:05 | Obstetrical Progress Note ---
Date of Service May 31, 2021 Assessment & Plan (1) Normal course: Continue routine pP care D/c home later today when baby is discharged Subjective Ambulation: ambulating normally Voiding: no voiding problems Passing Gas:: Yes Diet Tolerance:: regular diet Lochia:: Small Feeding Type:: breast feeding Current Pain Level(1-10): 6 Patient doing well, pain controlled with PO meds. Wants to go home today Physical Exam Constitutional WD/WN, vitals as above Respiratory normal respiratory effort, lungs clear to auscultation Cardiovascular RRR, no murmur, no edema Gastrointestinal (Abdomen) normal bowel sounds, soft, nontender, no hepatosplenomegaly fundus below umbilicus Results & Data ([facility]) Vital Signs (Past 12 Hours) Vital Signs Temp Pulse Resp BP 05/31/21 03:00 36.5 C 76 18 113/73 05/31/21 00:30 36.4 C L 63 18 108/73
[2021-05-31] MEDS: DOCUSATE SODIUM 100 MG CAP PO SCH (09:00)
[2021-05-31] MEDS ORDERED: bisacodyL 5 MG TABEC PO SCH (20:00)
[2021-06-02 18:41] LABS: Chlamydia Trach RNA NOT DETECTED (NOT DETECTED); GC (Neis gonorrhoeae) RNA NOT DETECTED (NOT DETECTED)
== END 2021-05-31 14:00 | disposition home or self-care (01) | DRG 807 ==
LOC: OPB 20:25 → 4S1 20:28 → 4S2 05-30 13:56
DX: O71.82 Other specified trauma to perineum and vulva; Z79.899 Other long term (current) drug therapy; O24.424 Gestational diabetes mellitus in childbirth, insulin controlled; Z37.0 Single live birth; Z3A.00 Weeks of gestation of pregnancy not specified; O69.1XX0 Labor and delivery complicated by cord around neck, with compression, not applicable or unspecified; Z20.822 Contact with and (suspected) exposure to COVID-19

== ENCOUNTER 2025-04-05 13:22 | Inpatient (IN) ==
--- NOTE | 2025-04-05 13:39 | Emergency Department Note ---
Impression & Plan Precipitous delivery, delivered (current hospitalization) ED Provider Note Name: DAYANARA WINKLER Age: 34 Sex: Female Arrives Via: Walk-In Informant: Patient ED Provider: Ghanshyam Caro MD Chief Complaint: delivery Impression: As per impression above Medical Decision Makin-year-old female arrives for evaluation following precipitous delivery while and route to hospital. Third child. Examination with placenta still undelivered. No significant vaginal bleeding appreciated other than what would be expected. She has some bogginess of the uterus but still requires delivery of the placenta. Breathing comfortably no distress. Able to hold baby for warmth while IV was established. Defer any laboratory or further testing to OB team who is at bedside relatively shortly. Patient was brought to L&D for further management. Triage/Nursing Notes reviewed by Me Vital Signs: reviewed and remarkable for no significant abnormalities Consults:Dr Harris OB consulted emergently for precipitous delivery prior to arrival. He arrived and we will take over management of patient upstairs. Plan: Disposition: Transfer to L&D. Condition: Good History of Present Illness: 34-year-old female arrives for evaluation following precipitous delivery of third child while and route to hospital this morning. Delivered roughly 5 to 10 minutes prior to arrival. Arrives with in arms, placenta undelivered and umbilical cord still attached. Patient is denying any significant pain or heavy bleeding. She denies any nausea or vomiting. She notes she has been in labor for the last several hours though had not had significant contractions until within the last half hour to 45 minutes. Notes precipitous delivery just prior to getting to the hospital. No significant issues with it and was at her side during this period. No medications prior to arrival. Patient states that she has had some mild issues with low blood sugars throughout but otherwise has been following closely with OB. No hypertension. She states she has had all of her testing done. Past Medical History: Hypoglycemia Home Medications: None Allergies: None Vitals:Blood Pressure: 106/67, Pulse 90, RR 22 Physical Exam: GENERAL: Patient is well appearing and in mild distress and a bit overwhelmed consistent with situation RESPIRATORY: No dyspnea. Clear to auscultation and equal bilaterally. CARDIOVASCULAR: Regular rate and rhythm.No murmur appreciated. GASTROINTESTINAL: Abdomen exam is soft nontender. There are some bogginess to the uterus without any tenderness palpation. : Placenta still on delivered. Mild venous oozing noted no heavy bleeding appreciated. EXTREMITIES: Normal motion all extremities, no cyanosis, no edema. NEUROLOGIC: Alert and oriented. No focal neurologic deficits appreciated SKIN: No rash, no jaundice, no diaphoresis. PSYCH: Appropriate GCS: 15 Ghanshyam Caro MD Past Med/Surg History Problem List (Updated 04/05/25 @ 16:20 by Ghanshyam Caro MD) Precipitous delivery, delivered (current hospitalization) (Acute) Normal course Leakage, amniotic fluid Medical History Diabetes mellitus affecting Social History Smoking Status: Former smoker Tobacco Type: Cigarettes Hx Alcohol Use: No Hx Substance Use: No Preferred Language: Turkish Teacher Lip Reading Required: No Beliefs That Will Affect Care: None marital status: Current Living Situation: Spouse and Family Assistive Devices: None Allergies Allergies Allergy/AdvReac Type Severity Reaction Status Date / Time No Known Allergies Allergy Verified 10/25/24 22:20 Home Meds Previous Rx's Medication Instructions Recorded promethazine 25 mg tablet 25 mg PO TID PRN sedation #10 tabs 10/27/24 Results & Data (ED) Vital Signs Vital Signs - 24 hr 04/05/25 13:22 Sepsis Recent Fever Within 48 Hours No Sepsis New/Unexplained Change in Mental Status No Sepsis Action Taken by Nursing No Action Required Laboratory Data 04/05/25 14:27 Administered Medications Benzocaine (Benzocaine 20% [place] 85 Appln/85 Gm Can) 1 appln EXT PRN PRN PRN Reason: Perineal Discomfort Stop: 05/05/25 14:10 Last Admin: 04/05/25 15:46 Dose: 85 appln Documented By: RADHA Oxytocin (Pitocin 30 Units/Nss) 30 units in 500 mls @ 333.333 mls/hr IV .Q1H30M PRN; Protocol PRN Reason: Bleeding Control Stop: 04/08/25 14:08 Last Titration: 04/05/25 15:00 Dose: Infused Documented By: Admin: 04/05/25 14:05 Dose: 59.94 units/hr, 999 mls/hr Documented By: AEEdis Co-signed By: ZAHRAA Ibuprofen (Ibuprofen 600 Mg Tab) 600 mg PO Q4H PRN PRN Reason: Pain/BOWLES/Cramping/Fever Stop: 05/05/25 14:10 Last Admin: 04/05/25 15:47 Dose: 600 mg Documented By: RADHA Discharge Plan Visit Data Chief Complaint: OB/Uterine Contractions Stated Complaint: BABY BORN ED Provider: Ghanshyam Caro Discharge Problem: Precipitous delivery, delivered (current hospitalization) Patient Disposition: Admitted As Inpatient Condition: Good Discharge Instructions Interventions: ED Discharge Assessment Last Done: 04/05/25 13:42
[2025-04-05] MEDS: LIDOCAINE 1% LOCAL 20 ML VIAL INFIL PRN (14:00)
[2025-04-05] MEDS: OXYTOCIN 30 UNITS/NSS 30 UNITS/500 ML BAG IV PRN (14:05)
[2025-04-05] MEDS ORDERED: LACTATED RINGER'S 1,000 ML IV PRN (14:09)
[2025-04-05] MEDS ORDERED: OXYTOCIN 30 UNITS/NSS 30 UNITS/500 ML BAG IV PRN (14:11)
[2025-04-05] MEDS ORDERED: HYDROCORTISONE ACETATE 25 MG SUPP PR PRN (14:11)
[2025-04-05] MEDS ORDERED: DIPHTHER/TETAN/PERTUS Vaccine (Tdap, Adol/Adult) 0.5mL IM ONE (14:11)
[2025-04-05] MEDS ORDERED: ACETAMINOPHEN 325 MG TAB PO PRN (14:11)
--- NOTE | 2025-04-05 14:18 | History & Physical Report ---
Date of Service April 05, 2025 Assessment & Plan (1) Precipitous delivery, delivered (current hospitalization): Plan: Delivery of placenta done Admission and Anticipated Discharge Date Admission Date: April 05, 2025 History of Present Illness Chief Complaint: delivery in car on the way to the hospital Primary Care Provider: Adarsh Callaway MD 34 F P2002 at 38.5 weeks who had a preciptous delivery on the way to the [facility] and delivered in the car. 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 Required: No Beliefs That Will Affect Care: None marital status: Current Living Situation: Spouse and Family Feels Safe at Home: Yes Assistive Devices: None OB History x2 MANAGER TRADING History neg Review of Systems All systems reviewed & are unremarkable except as noted in HPI & below Physical Exam Constitutional: WD/WN, vitals as above Respiratory: normal respiratory effort, lungs clear to auscultation Cardiovascular: Rate/Rhythm: regular rate and regular rhythm Musculoskeletal: Extremities: extremities normal to inspection Skin: no rashes, warm and dry Neurologic: patellar DTR's 2+ bilat, sensation intact Psychiatric: A+Ox3, euthymic affect Genitourinary: Placenta delivered spontaneously and intact. Small 1st degree tear repaired with 1% lidocaine plain and 3/0 suture. EBL 120 ml. Code Status & VTE Plan VTE Prophylaxis Plan VTE Prophylaxis will be ordered: No
[2025-04-05 14:40] LABS: Hematocrit (blood only) 39.6 % (37.0-47.0); Hemoglobin 13.3 g/dl (12.0-16.0); Mean Corpuscular Hemoglobin 29.6 pg (25.0-34.0); Mean Corpuscular Volume 88.2 fL (80.0-100.0); Platelet Count 188 K/uL (130-400); RDW Standard Deviation 43.4 fL (36.4-46.3); Red Blood Count 4.49 M/uL (4.20-5.40); White Blood Count 16.83 K/ul (4.8-10.8)
[2025-04-05] MEDS: BENZOCAINE 20% SPRY 85 APPLN/85 GM CAN EXT PRN (15:46)
[2025-04-05] MEDS: IBUPROFEN 600 MG TAB PO PRN (15:47)
[2025-04-05] MEDS: LIDOCAINE 2% LOCAL 20 ML VIAL ONE (17:32)
[2025-04-05] MEDS: LIDOCAINE 1% LOCAL 20 ML VIAL INFIL STA (17:48)
[2025-04-05] MEDS: DOCUSATE SODIUM 100 MG CAP PO SCH (20:21)
[2025-04-05] MEDS: CALCIUM CARBONATE 500 MG CHEWABLE TAB PO PRN (22:06)
[2025-04-06 06:20] LABS: Hematocrit (blood only) 34.5 % (37.0-47.0); Hemoglobin 12.0 g/dl (12.0-16.0); Mean Corpuscular Hemoglobin 30.8 pg (25.0-34.0); Mean Corpuscular Volume 88.5 fL (80.0-100.0); Platelet Count 170 K/uL (130-400); RDW Standard Deviation 43.7 fL (36.4-46.3); Red Blood Count 3.90 M/uL (4.20-5.40); White Blood Count 10.13 K/ul (4.8-10.8)
[2025-04-06] MEDS: PRENATAL VITAMIN 1 TAB PO SCH (07:38)
[2025-04-06 07:45] VITALS: RESP 18; O2SAT 97
--- NOTE | 2025-04-06 09:03 | Obstetrical Progress Note ---
Date of Service April 06, 2025 Assessment & Plan Admission and Anticipated Discharge Date Admission Date: April 05, 2025 Subjective Patient is seen and examined. She feels well, no complaints. Ambulating without dizziness Voiding without difficulty Tolerating regular diet with out N&V Bleeding is minimal No fever/ chills/ CP/ SOB/ N&V/ Leg pain Breast feeding without problems Vital Signs Temp Pulse Resp BP Pulse Ox O2 Del Method 04/06/25 07:44 36.6 C 75 18 105/66 97 Room Air 04/06/25 03:08 36.8 C 64 16 93/58 L 98 Room Air 04/05/25 23:00 37 C 68 18 116/72 97 Room Air Lab Results 04/05/25 04/06/25 Range/Units 14:27 05:59 WBC 16.83 H 10.13 (4.8-10.8) K/ul RBC 4.49 3.90 L (4.20-5.40) M/uL Hgb 13.3 12.0 (12.0-16.0) g/dl Hct 39.6 34.5 L (37.0-47.0) % MCV 88.2 88.5 (80.0-100.0) fL MCH 29.6 30.8 (25.0-34.0) pg MCHC 33.6 34.8 (32.0-36.0) g/dL RDW Std Deviation 43.4 43.7 (36.4-46.3) fL RDW Coeff of Richa 13.5 13.5 (11.5-14.5) % Plt Count 188 170 (130-400) K/uL MPV 11.5 11.3 (9.4-12.4) fL Treponema pallidum Ab Negative (Negative) PE: General: Alert, orientedx3, NAD Abd: soft, NT, fundus firm, below Umbilicus Perineum intact, Lochia rubra minimal Ext; NT, no edema AP: 34 yo s/p ,in car ppd# 1 VSS Afebrile doing well Continue routine care Desires d/c today All questions were answered D/C home , f/u in office Results & Data Vital Signs (Past 12 Hours) Vital Signs Temp Pulse Resp BP Pulse Ox O2 Del Method 04/06/25 07:44 36.6 C 75 18 105/66 97 Room Air 04/06/25 03:08 36.8 C 64 16 93/58 L 98 Room Air 04/05/25 23:00 37 C 68 18 116/72 97 Room Air
[2025-04-06] MEDS: LIDOCAINE 2% LOCAL 20 ML VIAL INFIL STA (10:09)
[2025-04-06 12:24] VITALS: BP 106/79; TEMP 98.2
[2025-04-06 13:47] VITALS: PULSE 79
== END 2025-04-06 14:45 | disposition home health service (06) | DRG 833 ==
LOC: ED 13:22 → 4S1 13:23 → 4E2 16:25